=== PATIENT | female | born 1960 ===

== ENCOUNTER 2018-07-04 09:50 | Outpatient (CLI) | payer MEDICAID | END 2018-07-04 09:51 | disposition home or self-care (01) | LOC: C.MAMMO 09:50 | DX: Z12.31 Encounter for screening mammogram for malignant neoplasm of breast (principal); M81.0 Age-related osteoporosis without current pathological fracture ==

== ENCOUNTER 2018-07-16 07:34 | Outpatient (CLI) | payer MEDICAID | END 2018-07-16 07:35 | disposition home or self-care (01) | LOC: C.USIC 07:34 ==

== ENCOUNTER → 2018-08-01 | Outpatient (CLI) | payer MEDICAID | LOC: C.CTH 08:37 | DX: N13.30 Unspecified hydronephrosis (principal) ==